=== PATIENT | male | born 1980 | race Caucasian/White ===

== ENCOUNTER 2020-09-09 08:33 | Day surgery (SDC) | payer OTHER ==
[~2020-09-09] VITALS: Ht 175.3 cm; Wt 74.8 kg
[~2020-09-09 08:33] MED LIST: IBUP600T27 PO; ceFAZolin 1GM/50ML 100 ML IV ONE
[2020-09-09] MEDS ORDERED: ceFAZolin 1GM/50ML 100 ML IV ONE (09:20)
[2020-09-09] MEDS ORDERED: BUPIVACAINE 0.25% INJ 50ML VIAL ONE (09:54)
[2020-09-09] MEDS ORDERED: VANCOMYCIN HCL 1000 MG VL ONE (09:59)
[2020-09-09] MEDS ORDERED: MORPHINE SULF(PF) 0.5MG/ML 10ML VIAL ONE (10:01)
[2020-09-09] MEDS ORDERED: KETOROLAC TROMETH 30 MG/ML 1ML VIAL ONE (10:01)
[2020-09-09] MEDS ORDERED: MIDAZOLAM HCL 1MG/1ML-2 ML VIAL ONE (10:08)
[2020-09-09] MEDS ORDERED: fentaNYL CITRATE 100 MCG/2 ML VL ONE (10:08)
[2020-09-09] MEDS ORDERED: fentaNYL CITRATE 5 ML ONE (10:08)
[2020-09-09] MEDS ORDERED: MEPERIDINE HCL (25 MG/ML) 1ML VIAL ONE (10:08)
[2020-09-09] MEDS ORDERED: SUCCINYLCHOLINE CHLORIDE 20 MG/ML 10ML VIAL IV ONE (10:18)
[2020-09-09] MEDS ORDERED: PHENYLEPHRINE HCL 10 MG/ML VL IV ONE (10:18)
[2020-09-09] MEDS ORDERED: ePHEDrine SULFATE 50 MG/ML AMP IV PRN (11:15)
[2020-09-09] MEDS ORDERED: HYDROmorphone HCL 2 MG/ML VL IV PRN (11:15)
[2020-09-09] MEDS ORDERED: MORPHINE SULF INJ 2 MG/ML SYRINGE 1ML IV PRN (11:15)
[2020-09-09] MEDS ORDERED: MIDAZOLAM HCL 1MG/1ML-2 ML VIAL IV PRN (11:15)
[2020-09-09] MEDS ORDERED: ONDANSETRON HCL 4 MG/2 ML VIAL IV PRN (11:15)
[2020-09-09] MEDS ORDERED: LABETALOL HCL 5 MG/ML 4ML SYRINGE IV PRN (11:15)
[2020-09-09] MEDS ORDERED: DexAMETHasone SOD PHOS 10MG/1ML VIAL INJ ONE (11:19)
[2020-09-09] MEDS ORDERED: PROPOFOL 10 MG/ML 20 ML IV ONE (11:19)
[2020-09-09] MEDS ORDERED: BUPIVACAINE 0.5% P/F INJ 10 ML VIAL ONE (14:28)
[2020-09-09] MEDS ORDERED: LABETALOL HCL 5 MG/ML 4ML SYRINGE IV ONE (15:15)
[2020-09-09 16:00] VITALS: BP 124/80
== END 2020-09-09 17:45 | disposition home or self-care (01) ==
LOC: SUR 08:33
PROVIDERS: ATTEND Orthopaedic Surgery
DX: S43.112A Subluxation of left acromioclavicular joint, initial encounter (principal); Z20.822 Contact with and (suspected) exposure to COVID-19; Z98.890 Other specified postprocedural states; Z98.52 Vasectomy status; Z88.6 Allergy status to analgesic agent; X58.XXXA Exposure to other specified factors, initial encounter; Y93.89 Activity, other specified; Y92.89 Other specified places as the place of occurrence of the external cause; Y99.8 Other external cause status
CPT/HCPCS: 23120; 23552; 73000; 86850; 86900; 86901; C1713; C1762; C9803; J0330; J0690; J1100; J1885; J2175; J2250; J2270; J2370; J2704; J3010; J3370; J3490; U0003